=== PATIENT | female | born 1960 | race Caucasian/White ===

== ENCOUNTER 2019-05-16 07:03 | Emergency (ER) | payer SELFPAY ==
[~2019-05-16] VITALS: Ht 160 cm; Wt 72.7 kg
[~2019-05-16 07:03] MED LIST: AMLODIPINE5 MG PO; ESTRADIOL0.5 MG PO; INDERAL 20MG TA20 MG PO; LEVAQUIN500 MG PO; LORTAB 5-325 MG1 TAB PO; MEVACOR20 MG PO; MICARDIS40 MG PO; OMEPRAZOLE20 MG PO
[2019-05-16] MEDS ORDERED: LISINOPRIL10 MG PO (07:34)
[2019-05-16 07:36] LABS: HEMATOCRIT 43.3 % (37.0-47.0); HEMOGLOBIN 14.1 g/dl (12.0-16.0); IMMATURE GRANULOCYTES 0.1 % (0.0-5.0); MEAN CELL VOLUME 95.8 fL CALC (80.0-100.0); MEAN CORPUSCULAR HGB 31.2 pG CALC (26.0-32.0); MEAN CORPUSCULAR HGB CONC 32.6 g/L CALC (32.0-36.0); NEUT# 5.17 thou/uL (2.00-7.15); RED BLOOD COUNT 4.52 mill/uL (4.20-5.60); RED CELL DISTRI WIDTH 12.9 % (11.5-15.5)
[2019-05-16 07:49] LABS: ANION GAP 18 (6-22 (CALC)); BUN 21 mg/dL (7-17); BUN/CREATININE RATIO 24 (12-20 (CALC)); CARBON DIOXIDE 26 mmol/l (22-30); CHLORIDE 98 mmol/l (95-108); CREATININE 0.8 mg/dL (0.5-1.0); GFR > 60 ML/MIN (>=60 (CALC)); GFR FOR AFR.AMER. > 60 ML/MIN (>=60 (CALC)); POTASSIUM 3.7 mmol/l (3.5-5.1); SODIUM 138 mmol/l (137-146)
[2019-05-16] MEDS ORDERED: ONDANSETRON4 MG PO (08:01)
[2019-05-16] MEDS ORDERED: TAM75CAP PO (08:01)
[2019-05-16 08:18] VITALS: BP 155/94
== END 2019-05-16 08:22 | disposition home or self-care (01) | DRG 153 ==
LOC: ED 07:03
PROVIDERS: Family Medicine
DX: J11.1 Influenza due to unidentified influenza virus with other respiratory manifestations (principal); I10 Essential (primary) hypertension